=== PATIENT | male | born 1945 | race Caucasian/White ===

== ENCOUNTER 2022-09-16 10:02 | Outpatient (CLI) | payer MEDICARE, BC, SELFPAY | END 2022-09-16 10:03 | disposition home or self-care (01) | LOC: INJ CL 10:03 | PROVIDERS: PCP Family Medicine; Visit Provider Family Medicine | DX: M54.16 Radiculopathy, lumbar region (principal); M51.36 Other intervertebral disc degeneration, lumbar region | CPT/HCPCS: 64483; J1100; Q9966 ==

== ENCOUNTER 2024-11-01 10:38 | Outpatient (CLI) | payer MEDICARE, BC, SELFPAY | END 2024-11-01 10:39 | disposition home or self-care (01) | LOC: INJ CL 10:41 | PROVIDERS: PCP Family Medicine; Visit Provider Family Medicine | DX: M54.16 Radiculopathy, lumbar region (principal); M51.369 Other intervertebral disc degeneration, lumbar region without mention of lumbar back pain or lower extremity pain | CPT/HCPCS: 64483; J1100; Q9966 ==